=== PATIENT | male | born 1975 | race Caucasian/White ===

== ENCOUNTER 2016-10-10 23:57 | Emergency (ER) | payer BC ==
[~2016-10-10] VITALS: Ht 182.9 cm; Wt 153.4 kg
[2016-10-11 01:11] VITALS: BP 136/85
== END 2016-10-11 01:13 | disposition home or self-care (01) ==
LOC: EME 23:57
PROC: 09C0XZZ Extirpation of Matter from Right External Ear, External Approach (ICD-10-PCS; principal; 2016-10-10)
DX: T16.1XXA Foreign body in right ear, initial encounter (principal); X58.XXXA Exposure to other specified factors, initial encounter
CPT/HCPCS: 99281; 99284

== ENCOUNTER → 2017-03-13 | Outpatient (CLI) | payer BC ==
[~2017-03-13] MED LIST: AMOX TR-K CLV1 EAC4 PO; HYDROCHLOROTHIA25 MG PO; SKELAXIN800 MG PO; TESSALON200 MG PO; ZESTORETIC 20-1 EAC1 PO
[2017-03-13 08:17] LABS: INTER. NORMALIZED RATIO 1.1; PROTHROMBIN TIME 12.5 SEC (10.2-12.9)
[2017-03-13 08:19] LABS: PTT 32.7 SEC (25-37)
== END | disposition home or self-care (01) ==
LOC: OPR 07:34 → EDSTATUS 08:00
PROVIDERS: Internal Medicine
PROC: 0FB03ZX Excision of Liver, Percutaneous Approach, Diagnostic (ICD-10-PCS; principal; 2017-03-13)
DX: C7A.098 Malignant carcinoid tumors of other sites (principal); I10 Essential (primary) hypertension; E66.9 Obesity, unspecified; I45.6 Pre-excitation syndrome; Z98.890 Other specified postprocedural states; Z82.49 Family history of ischemic heart disease and other diseases of the circulatory system; Z83.3 Family history of diabetes mellitus; Z82.61 Family history of arthritis; F17.200 Nicotine dependence, unspecified, uncomplicated
CPT/HCPCS: 77012; 85610; 85730; 88305; 88341 TC; 88342 TC; J3010

== ENCOUNTER → 2017-04-13 | Outpatient (CLI) | payer BC ==
[~2017-04-13] MED LIST changes: +VITAMIN D31000 UNIT PO
== END | disposition home or self-care (01) ==
LOC: OPR 08:42 → EDSTATUS 09:00 → OPR 09:00
PROC: 0QB33ZX Excision of Left Pelvic Bone, Percutaneous Approach, Diagnostic (ICD-10-PCS; principal; 2017-04-13)
DX: M89.9 Disorder of bone, unspecified (principal); R93.7 Abnormal findings on diagnostic imaging of other parts of musculoskeletal system; C7A.098 Malignant carcinoid tumors of other sites; F41.9 Anxiety disorder, unspecified; Z80.1 Family history of malignant neoplasm of trachea, bronchus and lung; Z77.22 Contact with and (suspected) exposure to environmental tobacco smoke (acute) (chronic); Z87.891 Personal history of nicotine dependence
CPT/HCPCS: 77012; 88305; J3010

== ENCOUNTER → 2017-05-22 | Outpatient (CLI) | payer BC ==
[~2017-05-22] VITALS: Ht 185.4 cm; Wt 147.8 kg
== END | disposition home or self-care (01) ==
LOC: AMB 12:00
PROC: 0FBG8ZX Excision of Pancreas, Via Natural or Artificial Opening Endoscopic, Diagnostic (ICD-10-PCS; principal; 2017-05-22)
DX: D3A.8 Other benign neuroendocrine tumors (principal); K76.0 Fatty (change of) liver, not elsewhere classified; I10 Essential (primary) hypertension; E66.9 Obesity, unspecified; Z68.41 Body mass index [BMI] 40.0-44.9, adult; I45.6 Pre-excitation syndrome; Z98.890 Other specified postprocedural states; Z82.49 Family history of ischemic heart disease and other diseases of the circulatory system; Z83.3 Family history of diabetes mellitus; Z82.61 Family history of arthritis; F17.200 Nicotine dependence, unspecified, uncomplicated
CPT/HCPCS: 88173; 93005; C1726; J0330; J1100; J2250; J2405; J3010